=== PATIENT | female | born 1995 | race Caucasian/White ===

== ENCOUNTER → 2020-08-09 17:37 | Outpatient (CLI) | payer MEDICAID, SELFPAY | PROVIDERS: Visit Provider Family Medicine | DX: M54.9 Dorsalgia, unspecified (principal) | CPT/HCPCS: 87086 ==

== ENCOUNTER → 2020-08-25 12:49 | Outpatient (CLI) | payer MEDICAID, SELFPAY ==
--- NOTE | 2020-08-25 12:59 | FL_ITS ---
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 Contrast was initially instilled into pre placed Cobos catheter. The catheter was within the urinary bladder but was in the uterus. The catheter was withdrawn and then an additional catheter was inserted this time in the urinary bladder. Urinary bladder is normal in contour. 300 cc of cystografin was instilled in the urinary bladder. Urinary bladder has an unremarkable appearance. There was no evidence of passive reflux. The patient was able to urinate with fluoroscopic visualization. There was no evidence of vesicoureteral reflux. Fluoroscopy time: 1 minutes and 58 seconds IMPRESSION: No evidence vesicoureteral reflux Dictated by: Raymond Nichols MD 08/25/2020 15:46 Raymond Nichols MD in [place] 08/27/2020 10:11
== END ==
PROVIDERS: PCP Family Medicine; Visit Provider Urology
DX: N13.70 Vesicoureteral-reflux, unspecified (principal)
CPT/HCPCS: 74455

== ENCOUNTER → 2020-08-29 08:51 | Outpatient (CLI) | payer MEDICAID, SELFPAY ==
--- NOTE | 2020-08-29 08:51 | CT_ITS ---
PROCEDURE: CT ABDOMEN PELVIS W CON CLINICAL INDICATION: urinary refux ,,frequent bladder infections COMPARISON: No exams were available for comparison TECHNIQUE: IV Contrast: 75ML OPTIRAY 350 Oral Contrast None Axial images obtained with sagittal and coronal reformats. All CT scans at the facility use one or more dose reduction, viz: automated exposure control, ma/kV adjustment per patient size (including targeted exams where dose is matched to indication, i.e. head), or iterative reconstruction technique. FINDINGS: LOWER THORAX: No acute finding ABDOMEN & PELVIS: Liver, spleen, adrenal glands, pancreas, and kidneys have an unremarkable appearance. No obvious renal or ureteral calculi. No intestinal obstruction or free air. No evidence of appendicitis. No obvious pelvic mass or abnormal fluid collection. A small amount fluid is present in the pelvis which is nonspecific and may be physiologic. The patient gives a history of having double ureters on the left however, the ureters are not well demonstrated. There is duplication of the collecting system proximally on both sides however, the mid distal aspect of the ureters are not well opacified despite performing delayed images. There is no evidence of hydronephrosis or ureteral obstruction. The uterus is anteverted.. IMPRESSION: 1. No acute abdominal or pelvic findings. 2. 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 Distal ureters are not well delineated despite performing delayed images. IVP may provide better evaluation of the ureters if clinically desired. No ureteral obstruction evident. Dictated by: Raymond Nichols MD 08/30/2020 08:41 Raymond Nichols MD in [facility] 08/30/2020 08:41
== END ==
PROVIDERS: PCP Family Medicine; Visit Provider Urology
DX: N13.70 Vesicoureteral-reflux, unspecified (principal)
CPT/HCPCS: 74177; Q9967

== ENCOUNTER → 2020-09-01 14:45 | Outpatient (CLI) | payer MEDICAID, SELFPAY | PROVIDERS: Visit Provider Urology | DX: N12 Tubulo-interstitial nephritis, not specified as acute or chronic (principal) | CPT/HCPCS: 87086 ==

== ENCOUNTER 2023-12-31 09:23 | Outpatient (CLI) | payer MEDICAID, SELFPAY ==
[2024-01-03 12:13] LABS: Atopobium vaginae Low - 0 Score (.); BVAB2 Low - 0 Score (.); Candida albicans NAA Positive (Negative); Candida glabrata Negative (Negative); Chlamydia Trachomatis NAA Negative (Negative); HSV 1 NAA Negative (Negative); HSV 2 NAA Negative (Negative); Megasphaera 1 Low - 0 Score (.); Neisseria gonorrhoeae NAA Negative (Negative); Trich vag NAA Negative (Negative)
[2024-01-07 22:11] LABS: Mycoplasma genitalium NAA Negative (Negative); Mycoplasma hominis NAA Negative (Negative); Ureaplasma spp NAA Positive (Negative)
== END 2023-12-31 23:59 ==
LOC: LAB.DROPOF 09:24
PROVIDERS: PCP Urology; Visit Provider Urology
DX: R10.9 Unspecified abdominal pain (principal)
CPT/HCPCS: 81001; 87491; 87529; 87563; 87591; 87661; 87798; 87801

== ENCOUNTER 2024-01-14 08:08 | Outpatient (CLI) | payer MEDICAID, SELFPAY ==
--- NOTE | 2024-01-14 08:09 | CT_ITS ---
FINAL REPORT TECHNIQUE: Axial CT images of the abdomen and pelvis were obtained before and after the administration of IV contrast. Oral contrast was administered.This study was performed with techniques to keep radiation doses as low as reasonably achievable (ALARA). Individualized dose reduction techniques using automated exposure control or adjustment of mA and/or kV according to the patient's size were employed. CLINICAL HISTORY: left flank pain COMPARISON: 08/29/2020 FINDINGS: Abdomen: The lung bases are clear. The heart is normal in size. The liver has an unremarkable appearance, without evidence of mass or biliary duct dilatation. . The spleen is unremarkable. No adrenal masses present. The pancreas has an unremarkable appearance. There are early calcifications in the renal pyramids bilaterally without well-defined stones. No evidence of hydronephrosis is seen. The aorta is normal in caliber. There is no free fluid or adenopathy. No mass or abnormal fluid collection is seen. Pelvis: The appendix is not well visualized. There are no secondary signs of inflammatory change in the pericecal region. The urinary bladder is unremarkable. An IUD is present in the uterus. No inflammatory process is seen. There is no evidence of mass or adenopathy. There is no evidence of bowel obstruction. IMPRESSION: No evidence of acute intra-abdominal process. Early calcification in the renal pyramids without well-defined stones, with no evidence of hydronephrosis. Reviewed, Interpreted and Dictated by Kody Moyer III, MD Transcribed by Alesha Garay Authenticated and [facility]
[2024-01-14] MEDS: IOPAMIDOL-370 (76%);100ML BOTTLE 75 ML IV (08:35)
[2024-01-14 08:39] LABS: Microscopic, Urine URINE MICROSCOPIC (MICROSCOPIC)
[2024-01-14 09:10] LABS: Blood Urea Nitrogen 17 mg/dl (7-17); Estimated Glomerular Filt Rate 67 ml/min (>60); GFR (African American) 80 ML/MIN (>60)
[2024-01-14 09:27] LABS: Appearance,Urine SL CLOUDY (Clear); Bilirubin,Urine Negative (Negative); Blood, Urine TRACE-I (Negative); Color,Urine YELLOW (Yellow); Glucose,Urine (UA) Negative (Negative); Ketones,Urine Negative (Negative); Leukocyte Esterase,Urine 1+ (Negative); Nitrate,Urine Negative (Negative); PH,Urine 6.5 (5.0-8.5); Protein,Urine Negative (Negative); Urobilinogen,Urine 0.2 EU/dl (0.2)
[2024-01-14 09:47] LABS: Bacteria,Urine 1+ /lpf; RBC,Urine Occasional #/hpf (0-3)
== END 2024-01-14 23:59 ==
PROVIDERS: PCP Urology; Visit Provider Urology
DX: R10.9 Unspecified abdominal pain (principal); B96.89 Other specified bacterial agents as the cause of diseases classified elsewhere
CPT/HCPCS: 36415; 74178; 81001; 82565; 84520; 87086; Q9967